=== PATIENT | male | born 1985 | race African-American/Black ===

== ENCOUNTER 2019-12-21 13:56 | Emergency (ER) | payer OTHER ==
[~2019-12-21] VITALS: Ht 177.8 cm; Wt 104.3 kg
[~2019-12-21 13:56] MED LIST: CARISOPRODOL 3350 MG PO; IBUPROFEN 800800 M1 PO; NOHOMEMEDICATIONS
[2019-12-21 14:03] VITALS: BP 145/108
[2019-12-21 14:48] LABS: EOSINOPHILS 2.4 % (0.0-3.0); HEMOGLOBIN 14.5 gm/dL (14.0-18.0); LYMPHOCYTES 26.3 % (24.0-44.0); MCH 30.5 pg (26.0-34.0); MCV 92.6 fL (80.0-100.0); MONOCYTES 9.6 % (1.0-8.0); PLATELET COUNT 282 thou/uL (150-400); POLYS 60.7 % (36.0-66.0); RBC 4.75 mil/uL (4.50-6.00); RDW 14.3 % (10.5-14.5); WBC 6.6 thou/uL (4.0-11.0)
[2019-12-21 15:02] LABS: CALCIUM 9.3 mg/dL (8.5-10.1); CREATININE 1.3 mg/dL (0.7-1.3); POTASSIUM 3.9 mmol/L (3.5-5.1)
[2019-12-21 15:08] LABS: ALBUMIN 4.1 g/dL (3.4-5.0); TOTAL BILIRUBIN 0.8 mg/dL (0.2-1.0); TOTAL PROTEIN 8.4 g/dL (6.4-8.2)
[2019-12-21] MEDS ORDERED: BENTYL 20 MG TA20 M1 PO (15:38)
== END 2019-12-21 16:35 | disposition left against medical advice (07) ==
LOC: ER 13:56
PROVIDERS: Emergency Medicine
DX: R10.9 Unspecified abdominal pain (principal); F12.90 Cannabis use, unspecified, uncomplicated; F17.210 Nicotine dependence, cigarettes, uncomplicated

== ENCOUNTER 2020-11-02 04:30 | Emergency (ER) | payer OTHER ==
[~2020-11-02] VITALS: Ht 175.3 cm; Wt 99.8 kg
[~2020-11-02 04:30] MED LIST changes: +BENTYL 20 MG TA20 M1 PO
[2020-11-02 04:34] VITALS: BP 166/106
== END 2020-11-02 05:00 ==
LOC: ER 04:30
DX: Z20.6 Contact with and (suspected) exposure to human immunodeficiency virus [HIV] (principal); Z53.21 Procedure and treatment not carried out due to patient leaving prior to being seen by health care provider